=== PATIENT | male | born 1945 | race Two or more races ===

== ENCOUNTER 2022-10-14 08:36 | Inpatient (IN) | payer BC ==
[~2022-10-14] VITALS: Ht 167.6 cm; Wt 63.5 kg
[2022-10-14] MEDS ORDERED: ATACAND4 MG PO (08:53)
--- NOTE | 2022-10-14 08:55 | NUR ---
PTE ALERTA Y ACTIVO X3, REFIERE TENER DOLOR DE ABDOMEN DESDE HACE CUATRO PEKC.
--- NOTE | 2022-10-14 10:05 | NUR ---
PTE ALERTA Y ORIENTADO X3 EN COMPANIA DE FAMILIAR ES EVALUADO POR EL DR. MELGOZA. SE ORIENTA SOBRE TRATAMIENTO MEDICO ORDENADO, VERBALIZA ENTENDER. SE CANALIZA Y SE ALCE MUESTRAS DE LABORATORIO HERNANDO ORDEN MEDICA BAJO MEDIDAS ASEPTICAS Y SE ENVIAN A LABORATORIO. SE ADMINISTRAN MEDICAMENTO HERNANDO ORDNE MEDICA BAJO MEDIDAS ASEPTICAS. SE NOTIFICA X RAY PENDIENTE. SE REALZIA EKG Y SE PRESNETA AL DR. MELGOZA EL CUAL EVALUA Y FIRMA EL MISMO. SE ROJELIO EN OBSERVACION POR TRATAMIENTO.
[2022-10-15] MEDS ORDERED: PERCOCET 5-3251 EACH PO (12:18)
== END 2022-10-15 13:49 | disposition home or self-care (01) | DRG 407 ==
LOC: ER 08:36 → O/R 11:45 → SURG 19:32 → SURH 19:54
PROVIDERS: General Practice; ADMIT Surgery; ATTEND Surgery
PROC: 0FB04ZZ Excision of Liver, Percutaneous Endoscopic Approach (ICD-10-PCS; 2022-10-14)
PROC: BF13YZZ Fluoroscopy of Gallbladder and Bile Ducts using Other Contrast (ICD-10-PCS; 2022-10-14)
PROC: 0FT44ZZ Resection of Gallbladder, Percutaneous Endoscopic Approach (ICD-10-PCS; principal; 2022-10-14 15:30)
DX: K80.12 Calculus of gallbladder with acute and chronic cholecystitis without obstruction (principal); Z20.822 Contact with and (suspected) exposure to COVID-19; E83.118 Other hemochromatosis

== ENCOUNTER 2022-10-15 19:56 | Inpatient (IN) | payer BC ==
[~2022-10-15] VITALS: Ht 152.4 cm; Wt 90.7 kg
[~2022-10-15 19:56] MED LIST: ATACAND4 MG PO; PERCOCET 5-3251 EACH PO
--- NOTE | 2022-10-15 20:19 | NUR ---
PTE ALERTA Y ORIENTADO X3, ACOMPANADO POR FAMILIARES. PTE REFIERE FIEBRE. AL MOMENTO DE TRIAGE PTE CON 98.7 DE TEMP. PTE SATURANDO 89% Y PULSO ELEVADO EN 129. FAMILIAR REFIERE DR. BRAY OPERO AL PTE CARRIE DE LA VESICULA. SE REALIZA EKG Y SE PRESENTA ANTE DR. MELGOZA. SE ALEC SV Y SE UBICA PTE.
--- NOTE | 2022-10-15 20:29 | NUR ---
SE EDUCA A PTE SOBRE TX MEDICO ERIC REFIERE ENTENDER, SE ALEC MUESTRAS DE LABORATORIO UTILIZANDO MEDIDAS ASEPTICAS. SE COLOCA H/L ONEL DE EDEMA. SE ADMINISTRAN MEDICAMENTOS LOS CUALES TOLERA. SE NOTIFICAN ABGS Y RX PENDIENTES A REALIZAR. SE CONECTA A PTE A MONITOR CARCDIACO CON OXIMETRIA CONTINUA.
[2022-10-18] MEDS ORDERED: MONDOXYNE NL100 MG PO (11:17)
== END 2022-10-18 13:20 | disposition home or self-care (01) | DRG 206 ==
LOC: ER 19:57 → ICU-2 21:50 → ICU 21:50 → SURH 10-16 21:41
PROVIDERS: General Practice; ADMIT Internal Medicine; ATTEND Internal Medicine
PROC: BB24ZZZ Computerized Tomography (CT Scan) of Bilateral Lungs (ICD-10-PCS; principal; 2022-10-15)
PROC: 5A0935A Assistance with Respiratory Ventilation, Less than 24 Consecutive Hours, High Flow/Velocity Cannula (ICD-10-PCS; 2022-10-15)
PROC: B246ZZZ Ultrasonography of Right and Left Heart (ICD-10-PCS; 2022-10-16)
PROC: 4A12X4Z Monitoring of Cardiac Electrical Activity, External Approach (ICD-10-PCS; 2022-10-17)
DX: J95.89 Other postprocedural complications and disorders of respiratory system, not elsewhere classified (principal); J98.11 Atelectasis; E83.118 Other hemochromatosis; I95.81 Postprocedural hypotension; R09.02 Hypoxemia